=== PATIENT | female | born 1970 | race Caucasian/White ===

== ENCOUNTER → 2020-12-20 01:48 | Outpatient (CLI) | payer BC, SELFPAY ==
[2020-12-20 17:52] LABS: SARS-CoV-2 RNA PCR Negative
== END ==
PROVIDERS: PCP Family Medicine; Visit Provider Internal Medicine Gastroenterology
DX: Z01.812 Encounter for preprocedural laboratory examination (principal); Z20.822 Contact with and (suspected) exposure to COVID-19
CPT/HCPCS: C9803; U0003; U0005

== ENCOUNTER 2020-12-23 01:47 | Day surgery (SDC) | payer BC, SELFPAY ==
[2020-12-15 09:13] VITALS: BMI 35.3
[2020-12-23 06:42] VITALS: BP 145/91; PULSE 66; RESP 22; TEMP 36.6; O2SAT 98; BMI 35.1
[2020-12-23] MEDS: LACTATED RINGERS 1,000 ML 150 ML IV CONT (06:56)
--- NOTE | 2020-12-23 07:45 | P.PNAN_ITS ---
Anes - Initial Pre Proc Eval Procedure: Operation Date: 12/23/20 08:00 Proposed Procedures p Screening Colonoscopy - Blayne Tello MD Date/Time: 12/23/20 07:45 Surgeon: Blayne Tello MD Pre Op Diagnosis: hx of colon polyps Patient Data Age: 50 Gender: F Height: 1.83 m Weight: 117.5 kg Last Vital Signs Temp 97.9 F 12/23/20 06:42 Pulse 66 12/23/20 06:42 Resp 22 H 12/23/20 06:42 BP 145/91 H 12/23/20 06:42 Pulse Ox 98 12/23/20 06:42 Allergies Allergy/AdvReac Type Severity Reaction Status Date / Time No Known Allergies Allergy Verified 12/23/20 06:41 Home Medications Medication Instructions Recorded Confirmed Type amlodipine 10 mg tablet 10 mg PO DAILY #90 tablet 08/10/20 12/15/20 Rx lisinopril 20 1 tablet PO DAILY #90 tablet 08/10/20 12/15/20 Rx mg-hydrochlorothiazide 25 mg tablet metoprolol tartrate 50 mg tablet 50 mg PO Q12H #180 tablet 08/10/20 12/15/20 Rx Patient hx anesthesia problems: none Family hx anesthesia problems: none PMFSH Past Medical History Medical History Essential (primary) hypertension Family history of colon cancer in mother Surgical History Surgical History [place] teeth extracted (~1987) Family History Family History Father Diabetes mellitus Hypertension Family history of cardiovascular disease Mother Carcinoma of colon Family history of malignant neoplasm of urinary bladder, Onset Age: 69 Social History Social History Smoking packs per day: 0.25 Smoking cigarettes per day: 5.0 Years smoked: 20 Smoking pack-years: 5.00 Smoking status: Current some day smoker Tobacco type: cigarettes Second hand tobacco smoke exposure: No Additional smoking assessment comments: friends smoke around pt once weekly Alcohol intake: current Drinks per week: 3 Alcohol use details: 3-4 DRINKS WEEKLY Substance use: never Substance use type: does not use Living arrangements: with roommate(s) Gender identity (if verbalized by the patient): Female Spiritual care concerns: No Anes - Eval Final PreProcedure Day of Procedure 12/23/20 07:45 Patient weight: obese Heart: regular rate and rhythm Airway: Mallampati scale class II Neurological: alert and oriented Last oral intake: >/= 8 hours ASA classification: II Emergent: no Anesthetic plan: proceed Anesthesia type and monitoring: general GIVS and standard monitoring Informed Consent: The patient's anesthetic plan and its attendant risks and benefits were discussed with the patient/family/POA. Questions were solicited and answers provided to the satisfaction of the patient/family/POA.
--- NOTE | 2020-12-23 07:45 | PM.HPGS ---
History of Present Illness History of Present Illness Consent: Risks, benefits, and alternatives have been discussed and questions answered. Patient agrees to proceed with procedure. Chief complaint: hx of colon polyps Narrative: Daniela Villeda is a 50 year old female here for first screening colonoscopy, mother had colon cancer Review of Systems Constitutional: Constitutional: Denies headache(s) and Denies weakness Eyes: Eyes: Denies blurry vision ENT: Reports Normal hearing present, Denies headache(s) and Denies neck pain Cardiovascular: Cardiovascular: Denies chest pain and Denies dyspnea Respiratory: Respiratory: Denies dyspnea Gastrointestinal: Gastrointestinal: Reports no additional gastrointestinal complaints Genitourinary: Genitourinary: Denies dysuria Musculoskeletal: Musculoskeletal: Denies neck pain Integumentary/Breasts: Skin/Breast: Denies dry skin Neurologic: Reports Normal hearing present, Denies headache(s) and Denies weakness Psychiatric: Psychiatric: Denies anxiety Endocrine: Endocrine: Denies change in body appearance Hematologic/Lymphatic: Hematologic/Lymphatic: Denies easy bleeding Allergic/Immunologic: Allergic/Immunologic: Denies urticaria PMFSH Past Medical History Medical History (Updated 12/23/20 @ 07:46 by Blayne Tello MD) Essential (primary) hypertension Family history of colon cancer in mother Surgical History Surgical History [place] teeth extracted (~1987) Family History Family History Father Diabetes mellitus Hypertension Family history of cardiovascular disease Mother Carcinoma of colon Family history of malignant neoplasm of urinary bladder, Onset Age: 69 Social History Social History Smoking packs per day: 0.25 Smoking cigarettes per day: 5.0 Years smoked: 20 Smoking pack-years: 5.00 Smoking status: Current some day smoker Tobacco type: cigarettes Second hand tobacco smoke exposure: No Additional smoking assessment comments: friends smoke around pt once weekly Alcohol intake: current Drinks per week: 3 Alcohol use details: 3-4 DRINKS WEEKLY Substance use: never Substance use type: does not use Living arrangements: with roommate(s) Gender identity (if verbalized by the patient): Female Spiritual care concerns: No Meds Home Medications and Allergies Home Medications Medication Instructions Recorded Confirmed Type amlodipine 10 mg tablet 10 mg PO DAILY #90 tablet 08/10/20 12/15/20 Rx lisinopril 20 1 tablet PO DAILY #90 tablet 08/10/20 12/15/20 Rx mg-hydrochlorothiazide 25 mg tablet metoprolol tartrate 50 mg tablet 50 mg PO Q12H #180 tablet 08/10/20 12/15/20 Rx Allergies Allergy/AdvReac Type Severity Reaction Status Date / Time No Known Allergies Allergy Verified 12/23/20 06:41 Vital Signs Vital Signs - 24 hr 12/23/20 06:42 Temperature 97.9 F Pulse Rate 66 Respiratory Rate 22 H Blood Pressure 145/91 H Pulse Oximetry 98 Exam Const: General: comfortable and no acute distress HENMT: General nose exam: Normal nares present Eyes: General: appearance normal, both eyes and all related structures Neck: Neck: no JVD Resp: Auscultation: clear to auscultation bilaterally Cardio: Rate: regular rate Rhythm: regular rhythm GI: Inspection: non-distended GI Palp: Yes Soft to palpation Skin: General skin exam: normal color Neuro: General: gait normal Speech: normal speech Extrem: General: normal to inspection Psych: Mental Status: mental status grossly normal Assessment and Plan Assessment and plan (1) Family history of colon cancer in mother: Code(s): Z80.0 - Family history of malignant neoplasm of digestive organs Status: Inactive Assessment and Plan: colonoscopy
[2020-12-23 08:06] VITALS: BP 106/64; PULSE 63; RESP 24; O2SAT 96
[2020-12-23 08:16] VITALS: BP 117/71; PULSE 62; RESP 23; O2SAT 99
[2020-12-23 08:26] VITALS: BP 126/77; PULSE 61; RESP 15; O2SAT 100
== END 2020-12-23 08:50 | disposition home or self-care (01) ==
PROVIDERS: PCP Family Medicine; Visit Provider Internal Medicine Gastroenterology
PROC: 0DJD8ZZ Inspection of Lower Intestinal Tract, Via Natural or Artificial Opening Endoscopic (ICD-10-PCS; CPT 45378; principal; 2020-12-23 08:00)
DX: Z12.11 Encounter for screening for malignant neoplasm of colon (principal); D12.3 Benign neoplasm of transverse colon; K63.5 Polyp of colon; K57.30 Diverticulosis of large intestine without perforation or abscess without bleeding; K64.8 Other hemorrhoids; Z80.0 Family history of malignant neoplasm of digestive organs; I10 Essential (primary) hypertension; F17.210 Nicotine dependence, cigarettes, uncomplicated; E66.9 Obesity, unspecified; Z68.35 Body mass index [BMI] 35.0-35.9, adult
CPT/HCPCS: 45380; 45385; 88305; J2704; J7120